=== PATIENT | female | born 1945 | race Caucasian/White ===

== ENCOUNTER 2017-12-20 13:02 | Emergency (ER) | payer OTHER ==
[~2017-12-20] VITALS: Ht 162.6 cm; Wt 65.8 kg
[~2017-12-20 13:02] MED LIST: ANTIVERT25 M1 PO; LEVAQUIN750 MG PO; NORTUSS-EX LIQ118 ML PO; SINGULAIR10 MG PO; TESSALON PERLE100 MG PO; TUSSI-PRES LIQ120 ML PO; TYLENOL ARTHRI650 MG PO; ULTRACET PO; ZITHROMAX TRI-500 MG PO; ZYRTEC10 MG PO
[2017-12-20] MEDS ORDERED: LISINOPRIL5 MG (13:42)
[2017-12-20] MEDS ORDERED: LEVALBUTER1.25 MG/3 (13:42)
[2017-12-20] MEDS ORDERED: CARVEDILOL3.125 MG (13:42)
[2017-12-20] MEDS ORDERED: METFORMIN HCL500 MG (13:42)
[2017-12-20] MEDS ORDERED: LEVOCETIRIZINE D5 MG (13:43)
== END 2017-12-20 19:35 | disposition home or self-care (01) ==
LOC: ER 13:02
DX: J45.901 Unspecified asthma with (acute) exacerbation (principal); J40 Bronchitis, not specified as acute or chronic; B34.9 Viral infection, unspecified

== ENCOUNTER 2019-08-18 09:55 | Emergency (ER) | payer OTHER ==
[~2019-08-18] VITALS: Ht 165.1 cm; Wt 62.6 kg
[~2019-08-18 09:55] MED LIST changes: +CARVEDILOL3.125 MG; +LEVALBUTER1.25 MG/3; +LEVOCETIRIZINE D5 MG; +LISINOPRIL5 MG; +METFORMIN HCL500 MG
[2019-08-18] MEDS ORDERED: ATORVASTATIN CA20 MG PO (10:35)
[2019-08-18] MEDS ORDERED: PROMETH-CODEIN 65 ML PO (14:39)
[2019-08-18] MEDS ORDERED: XOPENEX0.63 MG/3 IH (14:39)
[2019-08-18] MEDS ORDERED: TESSALON PERLE100 MG PO (14:39)
[2019-08-18] MEDS ORDERED: OSEL75CA PO (14:39)
== END 2019-08-18 15:50 | disposition home or self-care (01) ==
LOC: ER 09:55
DX: J45.901 Unspecified asthma with (acute) exacerbation (principal)

== ENCOUNTER 2020-05-02 08:23 | Emergency (ER) | payer OTHER ==
[~2020-05-02] VITALS: Ht 152.4 cm; Wt 68.0 kg
[~2020-05-02 08:23] MED LIST changes: +ATORVASTATIN CA20 MG PO; +OSEL75CA PO; +PROMETH-CODEIN 65 ML PO; +XOPENEX0.63 MG/3 IH
== END 2020-05-02 13:04 | disposition home or self-care (01) ==
LOC: ER 08:23
DX: J45.901 Unspecified asthma with (acute) exacerbation (principal); J06.9 Acute upper respiratory infection, unspecified; Z03.818 Encounter for observation for suspected exposure to other biological agents ruled out

== ENCOUNTER 2020-10-12 07:43 | Outpatient (CLI) | payer OTHER | END 2020-10-12 07:46 | disposition home or self-care (01) | LOC: SONOGRAMA 07:43 | PROVIDERS: ATTEND Pathology Anatomic Pathology & Clinical Pathology | DX: E04.2 Nontoxic multinodular goiter (principal) ==

== ENCOUNTER 2020-12-23 10:43 | Emergency (ER) | payer OTHER ==
[~2020-12-23] VITALS: Ht 162.6 cm; Wt 69.9 kg
[2020-12-23] MEDS ORDERED: CARVEDILOL3.125 MG (11:16)
[2020-12-23] MEDS ORDERED: THEOPHYLLINE A300 M1 PO (11:16)
[2020-12-23] MEDS ORDERED: SINGULAIR10 MG PO (11:17)
[2020-12-23] MEDS ORDERED: METFORMIN HCL500 M3 PO (11:17)
[2020-12-23] MEDS ORDERED: LIPITOR20 MG PO (11:17)
[2020-12-23] MEDS ORDERED: ZESTRIL5 MG PO (11:18)
[2020-12-23] MEDS ORDERED: LEVOTHYROXINE25 MCG PO (11:18)
[2020-12-23] MEDS ORDERED: NORVASC5 MG PO (11:19)
== END 2020-12-23 14:38 | disposition home or self-care (01) ==
LOC: ER 10:43
DX: J45.998 Other asthma (principal)

== ENCOUNTER 2021-04-26 13:03 | Emergency (ER) | payer OTHER ==
[~2021-04-26] VITALS: Ht 165.1 cm; Wt 69.4 kg
[~2021-04-26 13:03] MED LIST changes: +LEVOTHYROXINE25 MCG PO; +LIPITOR20 MG PO; +METFORMIN HCL500 M3 PO; +NORVASC5 MG PO; +THEOPHYLLINE A300 M1 PO; +ZESTRIL5 MG PO
[2021-04-26] MEDS ORDERED: DIABETIC SILTU118 M1 PO (18:43)
== END 2021-04-26 19:02 | disposition home or self-care (01) ==
LOC: ER 13:03
DX: J45.998 Other asthma (principal); Z03.818 Encounter for observation for suspected exposure to other biological agents ruled out

== ENCOUNTER 2021-06-23 15:13 | Emergency (ER) | payer OTHER ==
[~2021-06-23] VITALS: Ht 165.1 cm; Wt 54.4 kg
[~2021-06-23 15:13] MED LIST changes: +DIABETIC SILTU118 M1 PO
[2021-06-23] MEDS ORDERED: DIABETIC TUSSI118 M3 PO (18:36)
== END 2021-06-23 19:52 | disposition home or self-care (01) ==
LOC: ER 15:13
DX: J45.901 Unspecified asthma with (acute) exacerbation (principal); Z20.822 Contact with and (suspected) exposure to COVID-19

== ENCOUNTER 2022-11-15 14:13 | Emergency (ER) | payer OTHER ==
[~2022-11-15] VITALS: Ht 166.4 cm; Wt 64.9 kg
[~2022-11-15 14:13] MED LIST changes: +DIABETIC TUSSI118 M3 PO
[2022-11-15] MEDS ORDERED: OMEPRAZOLE40 MG PO (14:46)
[2022-11-15] MEDS ORDERED: THEOPHYLLINE A300 M1 (14:47)
[2022-11-15] MEDS ORDERED: ZITHROMAX TRI-500 MG PO (19:16)
== END 2022-11-15 19:27 | disposition home or self-care (01) ==
LOC: ER 14:13
DX: J45.901 Unspecified asthma with (acute) exacerbation (principal); Z88.0 Allergy status to penicillin; Z88.6 Allergy status to analgesic agent; J44.1 Chronic obstructive pulmonary disease with (acute) exacerbation

== ENCOUNTER 2022-11-20 15:32 | Emergency (ER) | payer OTHER ==
[~2022-11-20] VITALS: Ht 157.5 cm; Wt 64.9 kg
[~2022-11-20 15:32] MED LIST changes: +OMEPRAZOLE40 MG PO; +THEOPHYLLINE A300 M1
[2022-11-20] MEDS ORDERED: LEVOFLOXACIN500 MG PO (18:39)
[2022-11-20] MEDS ORDERED: MEDROLPACK PO (18:39)
== END 2022-11-20 20:34 | disposition home or self-care (01) ==
LOC: ER 15:32
DX: J44.1 Chronic obstructive pulmonary disease with (acute) exacerbation (principal); I10 Essential (primary) hypertension; E11.9 Type 2 diabetes mellitus without complications; Z79.84 Long term (current) use of oral hypoglycemic drugs; Z85.3 Personal history of malignant neoplasm of breast; Z88.6 Allergy status to analgesic agent; Z91.013 Allergy to seafood; Z88.0 Allergy status to penicillin; J45.901 Unspecified asthma with (acute) exacerbation; Z20.822 Contact with and (suspected) exposure to COVID-19

== ENCOUNTER 2023-03-11 18:33 | Emergency (ER) | payer OTHER ==
[~2023-03-11] VITALS: Ht 167.6 cm; Wt 61.2 kg
[~2023-03-11 18:33] MED LIST changes: +LEVOFLOXACIN500 MG PO; +MEDROLPACK PO
== END 2023-03-12 01:41 | disposition home or self-care (01) ==
LOC: ER 18:33
PROVIDERS: Emergency Medicine
DX: J45.901 Unspecified asthma with (acute) exacerbation (principal); I10 Essential (primary) hypertension; E11.9 Type 2 diabetes mellitus without complications; Z79.84 Long term (current) use of oral hypoglycemic drugs; Z20.822 Contact with and (suspected) exposure to COVID-19; Z88.0 Allergy status to penicillin; Z88.6 Allergy status to analgesic agent; Z91.013 Allergy to seafood
CPT/HCPCS: 36415; 71046; 94640; 96372; 99283; J2550

== ENCOUNTER → 2023-08-07 07:33 | Outpatient (CLI) | payer OTHER ==
[2023-08-07 08:25] LABS: PH,URINE 6.5 (5.0-8.0); URINE APPEARANCE Clear; URINE BILIRRUBIN Negative (NEGATIVE); URINE BLOOD Negative; URINE COLOR Yellow; URINE GLUCOSE Negative (NEGATIVE); URINE LEUKOCYTE Small; URINE NITRATE Negative; URINE PROTEIN Negative (NEGATIVE); URINE UROBILINOGEN 0.2 E.U./dl
[2023-08-07 08:27] LABS: URINE BACTERIA 64.2 uL (0.0-1933); URINE WBC 12.4 uL (0.0-23.2)
[2023-08-07 08:31] LABS: HEMATOCRIT 38.4 % (36.0-45.00); MEAN CELL VOLUME 89.6 fL (80.00-100.00); MEAN CORPUSCULAR HEMOGLOBIN 30.3 pg (27.00-32.0); MEAN CORPUSCULAR HGB CONC 33.8 g/dl (32.0-36.0); PLATELET COUNT 230 K/uL (150-450); RED BLOOD COUNT 4.28 M/uL (4.00-6.00); RED CELL DISTRIBUTION WIDTH 12.3 % (11.5-14.5)
[2023-08-07 08:32] LABS: URINE RBC 0.8 uL (0.0-20.8)
[2023-08-07 09:23] LABS: ALBUMIN 3.6 gm/dL (3.4-5.0); BILIRUBIN TOTAL 0.41 mg/dL (0.3-1.2); CHOL HDL RATIO 2.3 (0-5.0); CREATININE SERUM 0.73 mg/dL (0.55-1.02); GFR 77.51; GLOBULINA 3.3 G/DL (2.4-3.5); PHOSPHOROUS 2.9 mg/dL (2.5-4.9); POTASSIUM 4.52 mEq/L (3.5-5.1); T4 TOTAL 10.21 UG/DL (4.8-13.9); TOTAL PROTEIN 6.9 gm/dL (6.4-8.2); TSH 0.872 uIU/mL (0.358-3.74)
== END | disposition home or self-care (01) ==
LOC: LAB 07:33
PROVIDERS: ATTEND Internal Medicine
DX: E11.319 Type 2 diabetes mellitus with unspecified diabetic retinopathy without macular edema (principal); J44.9 Chronic obstructive pulmonary disease, unspecified; I11.9 Hypertensive heart disease without heart failure; I70.0 Atherosclerosis of aorta; E11.65 Type 2 diabetes mellitus with hyperglycemia; Z12.11 Encounter for screening for malignant neoplasm of colon; Z13.820 Encounter for screening for osteoporosis; Z68.24 Body mass index [BMI] 24.0-24.9, adult; H25.13 Age-related nuclear cataract, bilateral

== ENCOUNTER 2023-08-18 12:34 | Outpatient (CLI) | payer OTHER | END 2023-08-18 12:35 | disposition home or self-care (01) | LOC: NUCLEAR 12:34 | PROVIDERS: ATTEND Internal Medicine | DX: M81.0 Age-related osteoporosis without current pathological fracture (principal) ==

== ENCOUNTER 2024-01-16 10:40 | Emergency (ER) | payer OTHER ==
[~2024-01-16] VITALS: Ht 157.5 cm; Wt 45.4 kg
[~2024-01-16 10:40] MED LIST changes: +AMLODIPINE BESYL5 MG PO; +BUDESONIDE0.5 MG/2 M IH; +LISINOPRIL5 MG PO; +METFORMIN HCL500 M4 PO; +XOPENEX CO1.25 MG/0. IH; +ZITHROMAX500 MG PO
[2024-01-16] MEDS ORDERED: LEVALBUTEROL HCL 0.63 MG/3 ML SOLUTION IH ONE ×2 (12:00→12:43)
[2024-01-16] MEDS ORDERED: METHYLPREDNISOLONE SOD SUCC 40 MG VIAL IM ONE (12:00)
[2024-01-16] MEDS ORDERED: BENZONATATE 100 MG CAPSULE PO ONE (12:00)
[2024-01-16 12:40] LABS: HEMATOCRIT 38.3 % (36.0-45.00); HEMOGLOBIN 12.9 g/dL (12.0-15.00); MEAN CELL VOLUME 87.6 fL (80.00-100.00); MEAN CORPUSCULAR HEMOGLOBIN 29.6 pg (27.00-32.0); MEAN CORPUSCULAR HGB CONC 33.7 g/dl (32.0-36.0); PLATELET COUNT 270 K/uL (150-450); RED BLOOD COUNT 4.36 M/uL (4.00-6.00); RED CELL DISTRIBUTION WIDTH 13.4 % (11.5-14.5)
== END 2024-01-16 15:21 | disposition home or self-care (01) ==
LOC: ER 10:40
PROVIDERS: General Practice
DX: R05.9 Cough, unspecified (principal); Z20.822 Contact with and (suspected) exposure to COVID-19; I10 Essential (primary) hypertension; E03.8 Other specified hypothyroidism; E11.9 Type 2 diabetes mellitus without complications; Z79.84 Long term (current) use of oral hypoglycemic drugs; Z88.0 Allergy status to penicillin; Z88.6 Allergy status to analgesic agent; Z91.013 Allergy to seafood
CPT/HCPCS: 36415; 71045; 94640; 96372; 99283; J3490

== ENCOUNTER 2024-03-22 09:52 | Emergency (ER) | payer OTHER ==
[~2024-03-22] VITALS: Ht 162.6 cm; Wt 61.2 kg
[2024-03-22] MEDS ORDERED: PEPCID AC20 MG PO (10:04)
[2024-03-22] MEDS ORDERED: ONDANSETRON HCL 2 MG/ML VIAL IV ONE (11:45)
[2024-03-22] MEDS ORDERED: GUAIFEN/DEXTROMETHORPHAN/PE 10 ML BLIST.PACK PO ONE (11:45)
[2024-03-22] MEDS ORDERED: ALBUTEROL SULFATE 3 ML/2.5 MG AMPUL.NEB IH SCH (11:45)
[2024-03-22] MEDS ORDERED: ONDANSETRON HCL 2 MG/ML VIAL ONE (11:47)
[2024-03-22] MEDS ORDERED: GUAIFENESIN/DEXTROMETHORPHAN 5ML BLIST.PACK PO ONE (11:47)
[2024-03-22 12:02] LABS: HEMATOCRIT 40.1 % (36.0-45.00); HEMOGLOBIN 13.6 g/dL (12.0-15.00); MEAN CELL VOLUME 90.1 fL (80.00-100.00); MEAN CORPUSCULAR HEMOGLOBIN 30.5 pg (27.00-32.0); MEAN CORPUSCULAR HGB CONC 33.8 g/dl (32.0-36.0); PLATELET COUNT 241 K/uL (150-450); RED BLOOD COUNT 4.46 M/uL (4.00-6.00); RED CELL DISTRIBUTION WIDTH 13.2 % (11.5-14.5)
[2024-03-22] MEDS ORDERED: ALBUTEROL SULFATE 3 ML/2.5 MG AMPUL.NEB IH ONE (12:05)
[2024-03-22 13:17] LABS: ALBUMIN 3.6 gm/dL (3.4-5.0); BILIRUBIN TOTAL 0.4 mg/dL (0.3-1.2); CALCIUM 9.9 mg/dL (8.5-10.1); CREATININE SERUM 0.72 mg/dL (0.55-1.02); GFR 78.54; GLOBULINA 3.8 G/DL (2.4-3.5); POTASSIUM 4.02 mEq/L (3.5-5.1); TOTAL PROTEIN 7.4 gm/dL (6.4-8.2)
== END 2024-03-22 15:42 | disposition home or self-care (01) ==
LOC: ER 09:52
PROVIDERS: Emergency Medicine
DX: U07.1 COVID-19 (principal); J40 Bronchitis, not specified as acute or chronic; R53.81 Other malaise; I10 Essential (primary) hypertension; E11.9 Type 2 diabetes mellitus without complications; Z79.84 Long term (current) use of oral hypoglycemic drugs; Z88.0 Allergy status to penicillin; Z88.6 Allergy status to analgesic agent; Z91.013 Allergy to seafood
CPT/HCPCS: 36415; 71046; 94640; 96365; 99283; J2405

== ENCOUNTER 2024-04-11 16:33 | Emergency (ER) | payer OTHER ==
[~2024-04-11] VITALS: Ht 162.6 cm; Wt 54.4 kg
[~2024-04-11 16:33] MED LIST changes: +PEPCID AC20 MG PO
[2024-04-11] MEDS ORDERED: LEVALBUTEROL HCL 1.25 MG/3 ML SOLUTION IH SCH (17:15)
[2024-04-11] MEDS ORDERED: METHYLPREDNISOLONE SOD SUCC 125 MG VIAL IV ONE (17:15)
[2024-04-11] MEDS ORDERED: IPRATROPIUM BROMIDE 0.5 MG/2.5 ML AMPUL.NEB IH SCH (17:15)
[2024-04-11 17:21] LABS: HEMATOCRIT 38.9 % (36.0-45.00); HEMOGLOBIN 13.3 g/dL (12.0-15.00); MEAN CELL VOLUME 88.4 fL (80.00-100.00); MEAN CORPUSCULAR HEMOGLOBIN 30.1 pg (27.00-32.0); MEAN CORPUSCULAR HGB CONC 34.1 g/dl (32.0-36.0); PLATELET COUNT 299 K/uL (150-450); RED CELL DISTRIBUTION WIDTH 12.8 % (11.5-14.5)
[2024-04-11 17:43] LABS: ABG PH 7.431 (7.35-7.45); ABG PO2 71.6 mmHg (80-100); ABG pCO2 40.5 mmHg (35-45); BASE EXCESS 1.9 mmol/l; BICARBONATE 26.3 mmol/l (23-25); SaO2 94.8 %; Tco2 27.5 mmol/l
[2024-04-11 18:19] LABS: allen test SATISFACTORY; puncture site RADIAL RIGHT
[2024-04-11 18:20] LABS: o2 21 %
== END 2024-04-11 20:36 | disposition home or self-care (01) ==
LOC: ER 16:34
PROVIDERS: General Practice
DX: J45.909 Unspecified asthma, uncomplicated (principal); I10 Essential (primary) hypertension; Z88.0 Allergy status to penicillin; Z88.6 Allergy status to analgesic agent; Z91.013 Allergy to seafood